=== PATIENT | female | born 1985 | race Two or more races ===

== ENCOUNTER 2018-02-18 15:28 | Emergency (ER) | payer BC ==
[~2018-02-18] VITALS: Ht 162.6 cm; Wt 59.0 kg
[2018-02-18 15:36] VITALS: BP 137/88
[2018-02-18] MEDS ORDERED: KETOROLAC TROMETH 60MG/2ML VIAL IM ONE (16:00)
== END 2018-02-18 17:15 | disposition home or self-care (01) ==
LOC: EDBD 15:28 → ER 15:28
DX: S16.1XXA Strain of muscle, fascia and tendon at neck level, initial encounter (principal); S20.219A Contusion of unspecified front wall of thorax, initial encounter; V43.52XA Car driver injured in collision with other type car in traffic accident, initial encounter; Y93.89 Activity, other specified; Y99.8 Other external cause status; Y92.410 Unspecified street and highway as the place of occurrence of the external cause
CPT/HCPCS: 71046; 72040; 96372; 99284; J1885